=== PATIENT | male | born 1950 | race Caucasian/White ===

== ENCOUNTER → 2017-01-28 | Outpatient (CLI) | payer OTHER ==
[~2017-01-28] VITALS: Ht 170.2 cm; Wt 82.9 kg
[~2017-01-28] MED LIST: ACCUNEB SO1.25 MG/1 INH; APAP500 PO; ASPIR 8181 MG PO; BENADRYL25 MG PO; COREG6.25 MG PO; CRESTOR20 MG PO; FLEXERIL PO; FLOMAX0.4 MG PO; ISOSORBIDE MONO60 M1 PO; LASIX 40 MG TAB40 M2 PO; LEVOTHYROXIN0.075 MG PO; MAGOX 400400 MG PO; OMEGA 3 1,0001 EACH PO; OMEPRAZOLE 20 M20 MG PO; PRINIVIL20 MG PO; SPIRIVA INH; VITAMIN B-12500 MCG PO; VITAMIN D1000 UNI1 PO
--- NOTE | ~2017-01-28 | HPC ---
[facility] [address] [place] [address] PAIN MANAGEMENT CONSULTATION Name: KWANSARAI Dusty Room #: [facility] Taz#: [id number] Admission: 01/28/17 Attend Phys: Miguel Azul DO Discharge: Date of : 48 Report #: [id number] THIS REPORT FOR: //name// CC: [facility] physician/PCP Miguel Azul The patient is a 66-year-old gentleman, seen in consultation at the request of Dr. Scott at the [place] [place]. The patient is a 66-year-old gentleman, seen in consultation at the request of Dr. Scott for assistance with management of burning dysesthesia bilateral legs for the past 2 years. The patient presents to pain clinic today, complaining of weakness and paresthesia in his legs, states if he walks a few yards without his walker, his legs "give out." States he has fallen once in October. He fell 2 or 3 times in 2016. He states he "has had shots in his back" x [address] Harley. He states they "did not help a damn thing." States he frequents a chiropractic for adjustments fairly frequently. He has tried a TENS unit without efficacy. When asked when the pain began, he relates to falling out of a bus in boot [place], fracturing his pelvis, being in a body cast for 3 months, but then goes on to say he actually was fine for a number of years and that the pain in his legs started only 2 years ago. Again, the patient complains of a burning dysesthesia both legs, exacerbated with walking, some relief when sitting. Rates pain an 8 to 9 on a 0 to 10 visual analog scale. REVIEW OF SYSTEMS: Complete review of systems was attached to chart and gone over with the patient. He is , seen in the company of his , who is supportive. He has a 50+ pack-year smoking history, he quit in 2013. He had been a fairly heavy drinker, consuming 1 to 2, "6 packs" of beer daily, but he states that he significantly cut this back in 2012 and now drinks a beer only episodically and/or rarely. Notes history of COPD, coronary artery disease, status post congestive heart failure diagnosed in 2002. Hypertension, treated with carvedilol, Lasix, and lisinopril, uses an albuterol inhaler p.r.n. Levothyroxine for hypothyroid disorder, omeprazole for gastroesophageal reflux, tamsulosin for benign prostatic hypertrophy, and a statin-type medication for dyslipidemia. For pain concerns, he takes Flexeril "rarely." Gabapentin 300 mg two tablets twice a day. He was prescribed Cymbalta 30 mg, it sounds like he took it for 2 or 3 weeks, but self-discontinued due to "lack of efficacy." States he had cervical spine surgery in 1998, had a shoulder replacement in early . 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 He states he is disabled due to congestive heart failure and coronary artery disease, disability commenced in 2002. Pain impact score notes complete impact on [facility] [address] [place] [address] PAIN MANAGEMENT CONSULTATION Name: SARAI BOWENS Room #: REG SUDHAKAR Mcghee#: [id number] Admission: 01/28/17 Attend Phys: Vincent G. Jorge Alberto, DO Discharge: Date of : 48 Report #: [id number] general activity, walking ability, work, and enjoyment of life, though it does not impact sleep or his "relations with other people." PHYSICAL EXAMINATION: GENERAL: Reveals 5 feet 7 inches and 180 pounds gentleman. BMI is 28.6 kilograms per meter squared. VITAL SIGNS: Blood pressure is 141/65, pulse 83, and respirations 16. NEUROLOGIC: Cranial 2-12 are grossly intact. HEENT: Pupils are equal, reactive to light and accommodation. Extraocular muscles are intact. There is no nystagmus or lateral gaze deviation. Thyroid is modestly enlarged. No nodules are noted. MUSCULOSKELETAL: Right shoulder abduction and extension is decreased in range of motion and strength. Hand grasp is symmetric. HEART: Regular and rhythmical without murmur. LUNGS: Clear to auscultation. EXTREMITIES: He has an endomorphic build. There are no discrete trigger points in the low back, the lumbar paravertebral muscles, or over the SI joints. Right leg shows diminished strength compared to the left, perhaps 3 to 4 out of 5, to hip flexion, lower extremity extension and dorsiflexion. Left leg is a little bit stronger about 4/5 for these muscle groups. Patellar reflexes are absent, but symmetric. Achilles reflexes are 1/4 and symmetric. Straight leg raise is negative. Peripheral pulses radial and posterior tibial are symmetric. Does not have any light touch allodynia over the lower extremities. SKIN: Integument is generally intact. DIAGNOSTIC STUDIES: Note, MRI of the lumbar spine from 12/17/2016 noting normal alignment, no evidence of disk herniation, spinal or foraminal stenosis, degenerative changes noted in the inferior facet joints, bilateral renal cysts noted, moderate atrophy of the right kidney is noted. Lumbosacral x-rays from 06/12/2016 note degenerative changes including some minimal spurring in the inferior SIs, suggestive of degenerative changes in both hips, left greater than right, normal alignment of the vertebral bodies, some degenerative facet changes L5-S1. ASSESSMENT: Neuropathic pain, bilateral lower extremities, no physical evidence suggesting lumbar radiculopathy, no diagnostic studies to support this suggestion. RECOMMENDATIONS: 1. Suggest the patient to resume Cymbalta 60 mg one a day and may consider addition of a sodium channel membrane stabilizing agent (Tegretol 200 mg at bedtime, titrated to 1 in the morning, 2 at night over 5-7 day intervals). Given [facility], we will refer back to Dr. Scott for medication management. I was requested to evaluate the patient for consideration for epidural injection. The patient tells me "you would have to fight me to get me to lay down on that bed for another injection." [place] [address] PAIN MANAGEMENT CONSULTATION Name: KWANSARAI Dusty Room #: REG SUDHAKAR Mcghee#: [id number] Admission: 01/28/17 Attend Phys: Miguel Azul, Discharge: Date of : 48 Report #: [id number] frustrated that two prior injections by another health care provider did not give him any relief. Again, I have no medical records regarding those prior interventions. The patient is a very poor historian regarding dates. I suspect, however, they were lumbar epidural injections. Nonetheless, no interventional therapies are warranted at this time. Thank you for allowing me to participate in the patient's care. He has some chronic back pain, neuropathic pain component. I would consider medication management as noted above. Unfortunately, he does have chronic pain issues and they simply are not going to be abated by medication. They may only be somewhat attenuated at best. I tried to encourage the patient to continue with range of motion activity, chiropractic manipulation, and consider water aerobics. <ELECTRONICALLY SIGNED> By: Miguel Azul DO 01/31/17 [id number] Miguel Azul DO /nt
[2017-01-28 12:41] VITALS: BP 141/65
== END ==
LOC: PAIN 06:53
DX: M54.16 Radiculopathy, lumbar region (principal); G62.9 Polyneuropathy, unspecified